=== PATIENT | male | born 1945 | race American Indian/Alaskan Native ===

== ENCOUNTER 2017-11-06 10:45 | Observation (INO) | payer MEDICARE, OTHER ==
[2017-11-06 10:51] VITALS: BMI 33.2
--- NOTE | 2017-11-06 11:22 | C.PDOC ---
History Of Present Illness 72 y/o M c PMHx HTN p/w chest pain since this morning. Pain is R parasternal, nonradiating, constant. Patient denies fever, chills, cough, dyspnea, vomiting, diaphoresis. Patient states symptoms began after drinking Punch this morning for breakfast. Time Seen by Provider: 11/06/17 11:08 Chief Complaint (Nursing): Abdominal Pain Past Medical History Vital Signs: Last Vital Signs Temp 97.9 F 11/06/17 10:55 Pulse 71 11/06/17 10:55 Resp 12 11/06/17 10:55 BP 153/96 H 11/06/17 10:55 Pulse Ox 98 11/06/17 12:10 - Medical History PMH: Alzheimer's Disease, Anxiety, Asthma, Dementia, Depression, Gastritis Denies: Chronic Kidney Disease - [facility] Procedures CATARAC PHACOEMULS/ASPIR (08/30/14) CLOSED ENDOSCOPIC BIOPSY OF LARGE INTESTINE (06/21/14) ENDO RECTUM POLYPECTOMY (06/21/14) ESOPHAGOGASTRODUODENOSCOPY [EGD] W/CLOSED BIOPSY (06/21/14) INSERT LENS AT CATAR EXT (08/30/14) Family History: States: No Known Family Hx - Social History Hx Alcohol Use: No Hx Substance Use: No - Immunization History Hx Tetanus Toxoid Vaccination: Yes Hx Influenza Vaccination: Yes Hx Pneumococcal Vaccination: Yes Review Of Systems Except As Marked, All Systems Reviewed And Found Negative. Constitutional: Negative for: Fever Respiratory: Negative for: Shortness of Breath Physical Exam - Physical Exam Additional Physical Exam Comments: Gen: NAD Head: NC ENT: MMM Neck: Supple Chest: No tenderness or deformity CV: Regular rate Lungs: CTA b/l Abd: Soft, NT Extremities: No tenderness Skin: No rash over chest Neuro: Alert, no focal deficit ED Course And Treatment - Laboratory Results Result Diagrams: 11/06/17 11:26 11/06/17 12:05 O2 Sat by Pulse Oximetry: 98 Medical Decision Making Medical Decision Making: EKG Sinus rhythm, 76 bpm, no ST elevations. Aspirin administered. HISTORY: cp COMPARISON: Chest x-ray performed 11/06/17 TECHNIQUE: Chest, one view. FINDINGS: LUNGS: Left basilar atelectasis/ infiltrate. Please note that chest x-ray has limited sensitivity for the detection of pulmonary masses. PLEURA: No significant pleural effusion identified. No definite pneumothorax . CARDIOVASCULAR: Enlargement of the cardiomediastinal silhouette. Atherosclerotic calcifications. OSSEOUS STRUCTURES: Degenerative changes. VISUALIZED UPPER ABDOMEN: Elevation of the right jono thorax. OTHER FINDINGS: None. IMPRESSION: Left basilar atelectasis/infiltrate. Enlargement of the cardiomediastinal silhouette. Disposition Discussed With : Paulie Shah - Disposition Disposition: HOSPITALIZED Disposition Time: 13:14 Condition: FAIR - POA Core Measure Indicators: Chest Pain - Clinical Impression Clinical Impression: Chest pain
[2017-11-06 11:32] LABS: BASO # 0.1 K/uL (0.0-0.2); BASO % 1.1 % (0.0-2.0); EOS # 0.2 K/uL (0.0-0.7); EOS % 2.8 % (0.0-4.0); HEMOGLOBIN 13.6 g/dL (12.0-18.0); LYMPH # 2.3 K/uL (1.0-4.3); MEAN CORPUSCULAR HEMOGLOBIN 28.1 pg (27.0-31.0); MEAN CORPUSCULAR HGB CONC 33.6 g/dL (33.0-37.0); MEAN PLATELET VOLUME 8.3 fL (7.2-11.7); MONO # 0.9 K/uL (0.0-0.8); MONO % 14.8 % (0.0-10.0); NEUT # 2.6 K/uL (1.8-7.0); NEUT % 43.3 % (50.0-75.0); NRBC % 0.1 % (0.0-2.0); RBC 4.82 Mil/uL (4.40-5.90); RED CELL DISTRIBUTION WIDTH 14.4 % (11.5-14.5)
[2017-11-06 11:38] LABS: MEAN CELL VOLUME 83.6 fL (80.0-94.0)
--- NOTE | 2017-11-06 12:09 | RAD ---
HISTORY: cp COMPARISON: Chest x-ray performed 11/06/17 TECHNIQUE: Chest, one view. FINDINGS: LUNGS: Left basilar atelectasis/ infiltrate. Please note that chest x-ray has limited sensitivity for the detection of pulmonary masses. PLEURA: No significant pleural effusion identified. No definite pneumothorax . CARDIOVASCULAR: Enlargement of the cardiomediastinal silhouette. Atherosclerotic calcifications. OSSEOUS STRUCTURES: Degenerative changes. VISUALIZED UPPER ABDOMEN: Elevation of the right jono thorax. OTHER FINDINGS: None. IMPRESSION: Left basilar atelectasis/infiltrate. Enlargement of the cardiomediastinal silhouette.
[2017-11-06 12:30] LABS: CALCIUM 8.6 mg/dl (8.6-10.4); GFR AFRICAN-AMERICAN > 60; GFR NON-AFRICAN AMERICAN > 60
[2017-11-06 12:31] LABS: ALB/GLOB RATIO 0.9 (1.0-2.1); ALBUMIN 3.8 g/dL (3.5-5.0); ALT/SGPT 31 U/L (21-72); AST/SGOT 35 U/L (17-59); BLOOD UREA NITROGEN 15 mg/dL (9-20)
[2017-11-06 12:40] LABS: CK-MB 0.73 ng/mL (0.0-3.38)
[2017-11-06 19:36] LABS: CK-MB 0.62 ng/mL (0.0-3.38)
--- NOTE | 2017-11-06 20:13 | CP.PCM.HP ---
History of Present Illness - History of Present Illness History of Present Illness: History Of Present Illness 72 y/o M c PMHx HTN p/w chest pain since this morning. Pain is R parasternal, nonradiating, constant. Patient denies fever, chills, cough, dyspnea, vomiting, diaphoresis. Patient states symptoms began after drinking Punch this morning for breakfast. Past Patient History - Past Medical History & Family History Past Medical History?: Yes - Past Social History Smoking Status: Never Smoked - CARDIAC Hx Cardiac Disorders: No - PULMONARY Hx Asthma: Yes - NEUROLOGICAL Hx Alzheimer's Disease: Yes Hx Dementia: Yes - HEENT Hx HEENT Problems: Yes Hx Cataracts: Yes Hx Glaucoma: Yes - RENAL Hx Chronic Kidney Disease: No - ENDOCRINE/METABOLIC Hx Endocrine Disorders: No - HEMATOLOGICAL/ONCOLOGICAL Hx Blood Disorders: Yes Hx Cancer: Yes (COLON CANCER , PROSTATE) - INTEGUMENTARY Hx Dermatological Problems: No - MUSCULOSKELETAL/RHEUMATOLOGICAL Hx Musculoskeletal Disorders: No - GASTROINTESTINAL Hx Gastritis: Yes - GENITOURINARY/GYNECOLOGICAL Hx Genitourinary Disorders: Yes Hx Prostate Cancer: Yes Hx Prostate Problems: Yes (BPH) - PSYCHIATRIC Hx Anxiety: Yes Hx Depression: Yes Hx Substance Use: No - SURGICAL HISTORY Hx Surgeries: Yes Hx Cataract Extraction: Yes (left eye) Other/Comment: COLECTOMY 6 YRS AGO - ANESTHESIA Hx Anesthesia: Yes Meds Allergies/Adverse Reactions: Allergies Allergy/AdvReac Type Severity Reaction Status Date / Time Penicillins Allergy Verified 11/06/17 10:50 shellfish derived Allergy Verified 11/06/17 10:50 Results - Vital Signs Recent Vital Signs: Last Vital Signs Temp 97.9 F 11/06/17 10:55 Pulse 71 11/06/17 10:55 Resp 12 11/06/17 10:55 BP 153/96 H 11/06/17 10:55 Pulse Ox 98 11/06/17 13:43 - Labs Result Diagrams: 11/06/17 11:26 11/06/17 12:05 Labs: Laboratory Results - last 24 hr 11/06/17 11/06/17 11/06/17 11:26 12:05 19:06 WBC 6.0 RBC 4.82 Hgb 13.6 Hct 40.3 MCV 83.6 D MCH 28.1 MCHC 33.6 RDW 14.4 Plt Count 223 MPV 8.3 Neut % (Auto) 43.3 L Lymph % (Auto) 38.0 [place] % (Auto) 14.8 H Eos % (Auto) 2.8 Baso % (Auto) 1.1 Neut # (Auto) 2.6 Lymph # (Auto) 2.3 [place] # (Auto) 0.9 H Eos # (Auto) 0.2 Baso # (Auto) 0.1 Sodium 138 Potassium 4.9 Chloride 106 Carbon Dioxide 24 Anion Gap 12 BUN 15 Creatinine 0.9 Est GFR ( Amer) > 60 Est GFR (Non-Af Amer) > 60 Random Glucose 100 Calcium 8.6 Total Bilirubin 0.7 AST 35 ALT 31 Alkaline Phosphatase 110 Total Creatine Kinase 102 101 CK-MB (Mass) 0.73 0.62 Troponin I < 0.0120 < 0.0120 Total Protein 8.2 Albumin 3.8 Globulin 4.4 H Albumin/Globulin Ratio 0.9 L
[2017-11-07 05:17] VITALS: RESP 18
[2017-11-07] MEDS ORDERED: Enoxaparin 40 mg Syringe SC SCH (10:00)
[2017-11-07] MEDS ORDERED: Pantoprazole 40 mg EC Tab PO SCH (10:00)
[2017-11-07] MEDS: Brimonidine 0.2% Opth Sol (5ml) OU SCH ×3 (10:00→17:55)
[2017-11-07] MEDS ORDERED: Oxybutynin XL 10 mg Tab PO SCH (10:00)
[2017-11-07 15:33] VITALS: BP 109/70; TEMP 97.8; O2SAT 94
--- NOTE | 2017-11-07 16:33 | CP.PCM.PN ---
Subjective - Date & Time of Evaluation Date of Evaluation: 11/07/17 Time of Evaluation: 11:00 - Subjective Subjective: Pt seen today, states chest pain resolved, denies any sob,palpitations, dizziness , abdominal pain, n/v/d No overnight events reported on monitor troponin x 3 - negative Objective - Vital Signs/Intake and Output Vital Signs (last 24 hours): Temp Pulse Resp BP Pulse Ox 97.8 F 70 18 109/70 94 L 11/07/17 15:32 11/07/17 15:32 11/07/17 15:32 11/07/17 15:32 11/07/17 15:32 - Medications Medications: Current Medications Aspirin (Aspirin Chewable) 81 mg PO DAILY [facility] Last Admin: 11/07/17 09:39 Dose: 81 mg Brimonidine Tartrate (Alphagan 0.2% Opht) 0 ml OU TID [facility] Last Admin: 11/07/17 14:58 Dose: 1 drop Enoxaparin Sodium (Lovenox) 40 mg SC DAILY [facility] Last Admin: 11/07/17 09:46 Dose: Not Given Finasteride (Proscar) 5 mg PO DAILY [facility] Last Admin: 11/07/17 11:02 Dose: 5 mg Losartan Potassium (Cozaar) 25 mg PO DAILY [facility] Last Admin: 11/07/17 09:44 Dose: 25 mg Mirtazapine (Remeron) 15 mg PO HS [facility] Last Admin: 11/06/17 21:34 Dose: 15 mg Oxybutynin Chloride (Ditropan Xl) 10 mg PO DAILY [facility] Last Admin: 11/07/17 09:40 Dose: 10 mg Pantoprazole Sodium (Protonix Ec Tab) 40 mg PO DAILY [facility] Last Admin: 11/07/17 09:44 Dose: 40 mg Rosuvastatin Calcium (Crestor) 10 mg PO HS [facility] Last Admin: 11/06/17 21:34 Dose: 10 mg Tamsulosin HCl (Flomax) 0.4 mg PO DAILY [facility] Last Admin: 11/07/17 09:44 Dose: 0.4 mg Timolol Maleate (Timoptic 0.5% Ophth Soln) 0 drop OU BID [facility] Last Admin: 11/07/17 14:58 Dose: 1 drop - Labs Labs: 11/06/17 11:26 11/06/17 12:05 - Constitutional Appears: Well, No Acute Distress, Other (blind ) - Respiratory Exam Respiratory Exam: Clear to Ausculation Bilateral, NORMAL BREATHING PATTERN - Cardiovascular Exam Cardiovascular Exam: REGULAR RHYTHM, +S1, +S2 Assessment and Plan - Assessment and Plan (Free Text) Assessment: A/P 72 yr old male with pmhx of Alzheimer's Disease, Anxiety, Asthma, Dementia, admitted with R side chest pain troponin x 3 - negative EKG- sinus rhythm with 1 st degree block. no changes from previous BP improved after started with ari D/W Dr. 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
[2017-11-07 16:50] VITALS: PULSE 79
--- NOTE | 2017-11-07 17:27 | CARD ---
APPROVED REPORT EKG Measurement Heart [id number] SD [id number] <Conclusion> Sinus rhythm with 1st degree AV block Otherwise normal ECG
--- NOTE | 2017-11-07 23:20 | CP.PCM.DIS ---
Provider - Provider Date of Admission: 11/06/17 13:14 Attending physician: Paulie Shah MD Hospital Course - Lab Results Lab Results: Most Recent Lab Values WBC 6.0 K/uL (4.8-10.8) 11/06/17 11: RBC 4.82 Mil/uL (4.40-5.90) 11/06/17 11:26 Hgb 13.6 g/dL (12.0-18.0) 11/06/17 11: Hct 40.3 % (35.0-51.0) 11/06/17 11: MCV 83.6 fL (80.0-94.0) D 11/06/17 11: MCH 28.1 pg (27.0-31.0) 11/06/17 11: MCHC 33.6 g/dL (33.0-37.0) 11/06/17 11: RDW 14.4 % (11.5-14.5) 11/06/17 11: Plt Count 223 K/uL (130-400) 11/06/17 11: MPV 8.3 fL (7.2-11.7) 11/06/17 11: Neut % (Auto) 43.3 % (50.0-75.0) L 11/06/17 11: Lymph % (Auto) 38.0 % (20.0-40.0) 11/06/17 11: [place] % (Auto) 14.8 % (0.0-10.0) H 11/06/17 11: Eos % (Auto) 2.8 % (0.0-4.0) 11/06/17 11:26 Baso % (Auto) 1.1 % (0.0-2.0) 11/06/17 11: Neut # (Auto) 2.6 K/uL (1.8-7.0) 11/06/17 11: Lymph # (Auto) 2.3 K/uL (1.0-4.3) 11/06/17 11:26 [place] # (Auto) 0.9 K/uL (0.0-0.8) H 11/06/17 11:26 Eos # (Auto) 0.2 K/uL (0.0-0.7) 11/06/17 11:26 Baso # (Auto) 0.1 K/uL (0.0-0.2) 11/06/17 11:26 Sodium 138 mmol/L (132-148) 11/06/17 12:05 Potassium 4.9 mmol/L (3.6-5.2) 11/06/17 12:05 Chloride 106 mmol/L (98-107) 11/06/17 12:05 Carbon Dioxide 24 mmol/L (22-30) 11/06/17 12:05 Anion Gap 12 (10-20) 11/06/17 12:05 BUN 15 mg/dL (9-20) 11/06/17 12:05 Creatinine 0.9 mg/dL (0.8-1.5) 11/06/17 12:05 Est GFR ( Amer) > 60 11/06/17 12:05 Est GFR (Non-Af Amer) > 60 11/06/17 12:05 Random Glucose 100 mg/dL (75-110) 11/06/17 12:05 Calcium 8.6 mg/dl (8.6-10.4) 11/06/17 12:05 Total Bilirubin 0.7 mg/dL (0.2-1.3) 11/06/17 12:05 AST 35 U/L (17-59) 11/06/17 12:05 ALT 31 U/L (21-72) 11/06/17 12:05 Alkaline Phosphatase 110 U/L (38-126) 11/06/17 12:05 Total Creatine Kinase 101 U/L (55-170) 11/06/17 19:06 CK-MB (Mass) 0.62 ng/mL (0.0-3.38) 11/06/17 19:06 Troponin I < 0.0120 ng/mL (0.00-0.120) 11/06/17 19:06 Total Protein 8.2 g/dL (6.3-8.3) 11/06/17 12:05 Albumin 3.8 g/dL (3.5-5.0) 11/06/17 12:05 Globulin 4.4 gm/dL (2.2-3.9) H 11/06/17 12:05 Albumin/Globulin Ratio 0.9 (1.0-2.1) L 11/06/17 12:05 - Hospital Course Hospital Course: A/P 72 yr old male with pmhx of Alzheimer's Disease, Anxiety, Asthma, Dementia, admitted with R side chest pain troponin x 3 - negative EKG- sinus rhythm with 1 st degree block. no changes from previous BP improved after started with losarten D/W Dr. 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 Shah office in 1 week Continue medication as per Med. rec. Referrals: Paulie Shah MD [Staff Provider] -
== END 2017-11-07 18:27 | disposition home or self-care (01) ==
LOC: C.ER 10:45 → C.9E 13:14 → C.6T 20:08
PROVIDERS: ADMIT Internal Medicine; ATTEND Internal Medicine
DX: R07.9 Chest pain, unspecified (principal); J98.11 Atelectasis; J45.909 Unspecified asthma, uncomplicated; F02.80 Dementia in other diseases classified elsewhere, unspecified severity, without behavioral disturbance, psychotic disturbance, mood disturbance, and anxiety; G30.9 Alzheimer's disease, unspecified; F41.9 Anxiety disorder, unspecified; I44.0 Atrioventricular block, first degree; F32.9 Major depressive disorder, single episode, unspecified; Z85.038 Personal history of other malignant neoplasm of large intestine; Z85.46 Personal history of malignant neoplasm of prostate; N40.0 Benign prostatic hyperplasia without lower urinary tract symptoms; Z90.49 Acquired absence of other specified parts of digestive tract
CPT/HCPCS: 71045; 80053; 82550; 82553; 84484; 85025; 93005; 93306; 99285; G0378